=== PATIENT | female | born 1990 | race Caucasian/White ===

== ENCOUNTER 2018-05-14 14:26 | Emergency (ER) | payer OTHER ==
[2018-05-14 14:37] VITALS: BP 113/60
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
== END 2018-05-14 15:27 | disposition home or self-care (01) ==
LOC: UCEAST 14:26
DX: S29.012A Strain of muscle and tendon of back wall of thorax, initial encounter (principal); R51 Headache; M79.642 Pain in left hand; V49.40XA Driver injured in collision with unspecified motor vehicles in traffic accident, initial encounter; Y92.410 Unspecified street and highway as the place of occurrence of the external cause
CPT/HCPCS: 70450; 99211; G0463